=== PATIENT | female | born 1945 | race Caucasian/White ===

== ENCOUNTER 2024-12-04 10:15 | Outpatient (CLI) | payer MEDICARE, OTHER, SELFPAY | END 2024-12-04 10:16 | disposition home or self-care (01) | LOC: INJ CL 10:21 | PROVIDERS: PCP Physician Assistant; Visit Provider Family Medicine | DX: M54.16 Radiculopathy, lumbar region (principal) | CPT/HCPCS: 62323; J0702; Q9966 ==

== ENCOUNTER 2025-05-09 13:17 | Emergency (ER) | payer MEDICARE, OTHER, MEDICAID, SELFPAY ==
[2025-05-09] VITALS (10 sets, daily range): BP systolic 101–136; BP diastolic 46–75; PULSE 87–100; RESP 20; TEMP 36.5; O2SAT 91–95; BMI 22.9
--- NOTE | 2025-05-09 13:47 | CRLHL7_ITS ---
For Patients: As a result of the Century Cures Act, medical imaging exams and procedure reports are released immediately into your electronic medical record. You may view this report before your referring provider. If you have questions, please contact your health care provider. INDICATION: RECTAL PAIN, HEMORRHOIDS TECHNIQUE: CT abdomen and pelvis acquired with 61 cc Isovue 370 IV contrast. COMPARISON: None. FINDINGS: Lower chest: 2 millimeter left lower lobe indeterminate pulmonary nodule. ABDOMEN: Liver: Normal enhancement. No focal suspicious hepatic lesions. Gallbladder and biliary: Cholelithiasis in an otherwise normal gallbladder. Normal caliber bile ducts. Spleen: Normal size and enhancement. Pancreas: Normal enhancement without peripancreatic inflammatory changes or ductal dilatation. Adrenal glands: Normal adrenal glands. Kidneys and ureters: Normal enhancement. No radio-opaque calculi. No hydroureteronephrosis. Subcentimeter hypodensities are too small to characterize however statistically represent cysts. GI tract: The stomach is relatively decompressed. Normal caliber small and large bowel loops. Normal appendix. Colonic diverticulosis without diverticulitis. Vascular structures: Normal caliber aorta with atherosclerotic calcifications. Lymph nodes: No lymphadenopathy in the abdomen or pelvis by size criteria. Peritoneum: No free air, free fluid, or focal drainable fluid collection. PELVIS: Genitourinary system: Normal urinary bladder. Age-appropriate uterus. SKELETAL STRUCTURES AND SOFT TISSUES: No suspicious lytic or blastic lesions. IMPRESSION: 1. No discrete acute abdominal or pelvic process. No obstruction. No hydroureteronephrosis. 2. No imaging findings to explain the reported clinical symptoms. Please note that all CT scans at this facility use dose modulation, iterative reconstruction, and/or weight-based dosing when appropriate to reduce radiation dose to as low as reasonably achievable. Dictated by Luisito Michaels MD @ 05/09/2025 3:51:17 PM (Electronically Signed)
--- NOTE | 2025-05-09 13:49 | ED.GENADULT ---
HPI - General Adult General Date Seen: 05/09/25 Chief complaint: Unspecified Complaint, Adult Stated complaint: Hemorrhoids Time Seen by Provider: 05/09/25 13:37 History of Present Illness HPI narrative: Patient is an 80-year-old woman here with her daughter for evaluation of possible hemorrhoids. She says for the past week or 2 she has been having severe pain which has been keeping her from sleeping, it is difficult to sit. She notes that she has had hemorrhoids for a long time but they have really never bothered her. This pain is entirely new. She has had small infrequent bowel movements, usually loose. She notes that she does tend toward having to push to have a bowel movement, but it sounds like stools are generally loose rather than small or hard. It sounds as if pain is constant both lying down and sitting up. She has not seen any blood in her stools although she says she has not really looked because she would not want to see that anyway. She has not had any vomiting. She has not had fevers or other systemic complaints. Related Data Home Medications ?Medication ?Instructions ?Recorded ?Confirmed albuterol sulfate 90 mcg/actuation 1 - 2 puff inhalation Q4H PRN 05/09/25 05/09/25 aerosol inhaler (Ventolin HFA) dyspnea budesonide-formoterol HFA 160 1 puff inhalation BID 05/09/25 05/09/25 mcg-4.5 mcg/actuation aerosol inhaler celecoxib 100 mg capsule 100 mg PO BID PRN pain 05/09/25 05/09/25 fluticasone 113 mcg-salmeterol 14 1 inh inhalation BID 05/09/25 05/09/25 mcg/actuation breath activated powdr ipratropium 0.5 mg-albuterol 3 mg 3 ml inhalation 3XD 05/09/25 05/09/25 (2.5 mg base)/3 mL nebulization soln levothyroxine 88 mcg tablet 88 mcg PO QAM 05/09/25 05/09/25 metformin 500 mg tablet mg PO 05/09/25 potassium chloride 20 mEq 20 meq PO DAILY 05/09/25 05/09/25 tablet,extended release(part/cryst) simvastatin 20 mg tablet 20 mg PO QPM 05/09/25 05/09/25 Previous Rx's ?Medication ?Instructions ?Recorded icbllsfip-nzghizjkikaxux-myfw vera 1 applic NC BID 1 week #100 grams 05/09/25 2.8 %-0.55 % rectal gel Allergies Allergy/AdvReac Type Severity Reaction Status Date / Time house dust Allergy Mild Congested Verified 05/09/25 15:24 Review of Systems Status of ROS: Reports: 10 or more systems reviewed and unremarkable except as noted in History and below PFSH PFS Social History Non-prescribed substance use: denies use Exam Narrative: Exam Narrative: Vital signs reviewed In general, alert, nontoxic elderly woman. She is lying on her side, looks comfortable. Head: Normocephalic, atraumatic. Eyes: Sclera clear. Pupils equal and reactive. ENT: Mucous membranes moist. Neck: Supple without adenopathy. Heart: Regular rate and rhythm without murmur. Lungs: Clear. No increased work of breathing, crackles or wheezes. Abdomen: Soft, nontender to palpation. Rectal: She has 1 small nonthrombosed hemorrhoid at about 6:00 a.m.. She does have some tenderness here, I tried to do a digital rectal exam and she had severe pain with trying to do that exam. I do not feel any obvious palpable masses. Extremities: Well perfused, pulses intact. No significant edema. Neurologic: Alert, conversant. Speech fluent, face symmetric. Moves all extremities equally. Skin: Warm, dry well perfused. Affect: Normal. Const: Vital Signs, click to edit/add: Vital Signs - 24 hr 05/09/25 13:32 05/09/25 15:13 05/09/25 15:15 Temperature 97.7 F Pulse Rate 88 87 Pulse Rate [Right Pulse Oximeter] 100 Respiratory Rate 20 Blood Pressure Blood Pressure [Ri ght Upper Arm] 101/46 L Pulse Oximetry 93 95 95 Oxygen Delivery Me thod Room Air 05/09/25 15:38 05/09/25 15:46 05/09/25 16:00 Temperature Pulse Rate 98 87 Pulse Rate [Right Pulse Oximeter] Respiratory Rate Blood Pressure Blood Pressure [Ri ght Upper Arm] Pulse Oximetry 93 92 94 Oxygen Delivery Me thod 05/09/25 16:15 05/09/25 16:30 05/09/25 16:35 Temperature Pulse Rate 89 89 90 Pulse Rate [Right Pulse Oximeter] Respiratory Rate Blood Pressure 136/75 Blood Pressure [Ri ght Upper Arm] Pulse Oximetry 91 93 93 Oxygen Delivery Me thod 05/09/25 16:43 Temperature Pulse Rate Pulse Rate [Right Pulse Oximeter] Respiratory Rate Blood Pressure Blood Pressure [Ri t Upper Arm] 136/75 Pulse Oximetry Oxygen Delivery Me thod Course Course ED Course: Discussed with her and her daughter that it is a little hard for me to reconcile that small nonthrombosed hemorrhoid as causing severe pain. I do think we should do additional evaluation to look for other possible causes of rectal pain, I was not able to do a thorough enough rectal exam to determine whether she might have fecal impaction. Other considerations would be proctitis, abscess or other colitis. I recommended that we do a little blood work and a CT scan to evaluate further. She does have a pulse of 100, marginally low blood pressure of 101/46, she is afebrile and not reporting any systemic symptoms to suggest sepsis. Labs are notable for a normal white blood cell count of 5.3. She is mildly anemic with a hemoglobin of 10.7, baseline unknown. Her metabolic panel is entirely within normal limits. Her initial lactate was 3.3, CRP was less than 0.5. She had a L normal saline. Lactate improved to 2.3. She does tell me she has not been eating or drinking very much at all because she was worried about it worsening her rectal pain, so I suspect that her lactate is elevated secondary mostly to dehydration. CT scan by my review did not show any obvious inflammatory changes around the rectum or obvious abscess. Radiology reads her CT as negative for any acute findings or explanation for her pain. She had 0.25 mg of Dilaudid and feels considerably better, her daughter asked if she could have Dilaudid for home use but we discussed that based on her negative imaging, I think Dilaudid is probably not the best choice for her hemorrhoidal pain. I am prescribing her a lidocaine hydrocortisone ointment. Discussed that we would like to avoid having to push with bowel movements, so she feels that she is constipated would recommend MiraLax. I remain somewhat dubious that the visible hemorrhoid is causing severe pain, but in the absence of any other concerning findings on today's evaluation, I think it is reasonable to let her go home, I recommended primary care follow-up if she is not improving over the next few days to week. Return to the ER at any time if she has severe uncontrolled pain, new symptoms such as fevers, vomiting, chills etcetera. Vital Signs Vital signs: Initial Vital Signs Temperature 97.7 F 05/09/25 13:32 Temperature Source Temporal Artery Scan 05/09/25 13:32 Pulse Rate 100 05/09/25 13:32 Respiratory Rate 20 05/09/25 13:32 Blood Pressure 101/46 L 05/09/25 13:32 Blood Pressure Mean 64 L 05/09/25 13:32 Blood Pressure Position Sitting 05/09/25 13:32 Pulse Oximetry 93 05/09/25 13:32 Oxygen Delivery Method Room Air 05/09/25 13:32 Vital Signs Temperature 97.7 F 05/09/25 13:32 Pulse Rate 100 05/09/25 13:32 Respiratory Rate 20 05/09/25 13:32 Blood Pressure 101/46 L 05/09/25 13:32 Pulse Oximetry 93 05/09/25 13:32 Oxygen Delivery Method Room Air 05/09/25 13:32 Temperature 97.7 F 05/09/25 13:32 Pulse Rate 90 05/09/25 16:35 Respiratory Rate 05/09/25 13:32 Blood Pressure 136/75 05/09/25 16:43 Pulse Oximetry 93 05/09/25 16:35 Oxygen Delivery Method Room Air 05/09/25 13:32 Medications Administered Medications: Discontinued Medications Generic Name Dose Route Start Last Admin Trade Name Freq PRN Reason Stop Dose Admin Hydromorphone HCl 0.25 mg 05/09/25 13:47 05/09/25 14:40 Hydromorphone 0.5 Mg/0.5 Ml Inj IVP 05/09/25 13:48 0.25 mg ONCE ONE Administration Sodium Chloride 1,000 mls @ 1,000 mls/hr 05/09/25 14:00 05/09/25 15:48 0.9 % Sodium Chloride 1000 Ml IV 05/09/25 14:59 Infused .Q1H JANNETH Infusion Medical Decision Making Lab Data Lab results reviewed: Yes I reviewed the patient's lab results Labs: Lab Results 05/09/25 05/09/25 Range/Units 14:26 16:35 WBC 5.31 (4.50-11.00) K/uL RBC 4.18 (4.00-5.20) m/uL Hgb 10.7 L (12.0-16.0) gm/dL Hct 35.1 (33.0-51.0) % MCV 84 (80-100) fL MCH 26 (26-34) pg MCHC 31 L (32-36) gm/dL RDW Coeff of Diamond 16.5 H (11.5-15.5) % Plt Count 275 (140-440) K/uL Neut % (Auto) 64.6 (42.0-72.0) % Lymph % (Auto) 23.7 (20-44) % [place] % (Auto) 9.6 (0.0-11.0) % Eos % (Auto) 1.3 (0.0-7.0) % Baso % (Auto) 0.8 (0.0-3.0) % Neut # (Auto) 3.43 (1.7-7.0) K/uL Lymph # (Auto) 1.26 (0.90-2.90) K/uL [place] # (Auto) 0.50 (0.00-0.90) K/UL Eos # (Auto) 0.07 (0.00-0.50) K/uL Baso # (Auto) 0.04 (0.00-0.30) K/uL Abs Immat Gran (auto) 0.00 (0.00-0.30) K/uL Imm/Tot Granulo (auto) 0.0 % Sodium 135 (135-149) mmol/L Potassium 3.9 (3.6-5.1) mmol/L Chloride 104 (96-114) mmol/L Carbon Dioxide 24 (20-32) mmol/L Anion Gap 7 (7-15) mEq/L BUN 15 (7-30) mg/dL Creatinine 0.6 (0.5-1.5) mg/dL Estimated Creat Clear 32.73 Estimated GFR 90 ml/min Glucose 104 (60-115) mg/dL Lactate 3.3 H 2.3 H (0.5-1.9) mmol/L Calcium 8.9 (8.4-10.6) mg/dL C-Reactive Protein < 0.5 L (0.5-1.0) mg/dL Imaging Data CT scan - abdomen: Attestation: I have reviewed the pertinent imaging results. Radiologist's impression: Patient: ANASTACIA HASTINGS Facility: [facility] RIS Site . Site : [id number] Study: CT-Abdomen/Pelvis WITH 61 CC ISOVUE 370-05/09/2025 3:36:22 PM Ordering Physician: Hector Greco Final Report: INDICATION: RECTAL PAIN, HEMORRHOIDS TECHNIQUE: CT abdomen and pelvis acquired with 61 cc Isovue 370 IV contrast. COMPARISON: None. FINDINGS: Lower chest: 2 millimeter left lower lobe indeterminate pulmonary nodule. ABDOMEN: Liver: Normal enhancement. No focal suspicious hepatic lesions. Gallbladder and biliary: Cholelithiasis in an otherwise normal gallbladder. Normal caliber bile ducts. Spleen: Normal size and enhancement. Pancreas: Normal enhancement without peripancreatic inflammatory changes or ductal dilatation. Adrenal glands: Normal adrenal glands. Kidneys and ureters: Normal enhancement. No radio-opaque calculi. No hydroureteronephrosis. Subcentimeter hypodensities are too small to characterize however statistically represent cysts. GI tract: The stomach is relatively decompressed. Normal caliber small and large bowel loops. Normal appendix. Colonic diverticulosis without diverticulitis. Vascular structures: Normal caliber aorta with atherosclerotic calcifications. Lymph nodes: No lymphadenopathy in the abdomen or pelvis by size criteria. Peritoneum: No free air, free fluid, or focal drainable fluid collection. PELVIS: Genitourinary system: Normal urinary bladder. Age-appropriate uterus. SKELETAL STRUCTURES AND SOFT TISSUES: No suspicious lytic or blastic lesions. IMPRESSION: 1. No discrete acute abdominal or pelvic process. No obstruction. No hydroureteronephrosis. 2. No imaging findings to explain the reported clinical symptoms. Please note that all CT scans at this facility use dose modulation, iterative reconstruction, and/or weight-based dosing when appropriate to reduce radiation dose to as low as reasonably achievable. Dictated by Luisito Michaels MD @ 05/09/2025 3:51:17 PM Discharge Plan Discharge Clinical Impression: Anal or rectal pain Patient Disposition: Home, Self-Care Condition: Improved Instructions: Rectal Pain (ED) Additional Instructions: Use the prescribed topical ointment twice a day as directed for 1 week. You should not continue it beyond a week. If you are still having significant symptoms at that time you should be seen in follow-up by primary care. Sits that this several times a day. If at any point you feel significantly worse, have new symptoms such as abdominal pain, fevers, vomiting, chills etcetera, return to the emergency department. Prescriptions: New gmyfahynw-qezjydvilusfww-yhop 2.8-0.55 % gel 1 applic NC BID 7 Days Qty: 100 0RF No Action metformin 500 mg tablet PO ipratropium-albuterol 0.5 mg-3 mg(2.5 mg base)/3 mL solution for nebulization 3 ml INHALATION 3XD levothyroxine 88 mcg tablet 88 mcg PO QAM potassium chloride 20 mEq tablet,ER particles/crystals 20 meq PO DAILY simvastatin 20 mg tablet 20 mg PO QPM albuterol sulfate [Ventolin HFA] 90 mcg/actuation HFA aerosol inhaler 1 - 2 puff INHALATION Q4H PRN (Reason: dyspnea) celecoxib 100 mg capsule 100 mg PO BID PRN (Reason: pain) budesonide-formoterol 160-4.5 mcg/actuation HFA aerosol inhaler 1 puff INHALATION BID fluticasone propion-salmeterol 113-14 mcg/actuation aerosol powdr breath activated 1 inh INHALATION BID Follow Up/Referrals: Fannie Patrick PA-C [Primary Care Provider, Family Practice] Stand Alone Forms: Torrential Info Instructions
--- OUTSIDE RECORDS SUMMARY | 2025-05-09 14:36 | XMS_ITS | Clinical Summary ---
Author Organization [facility] Address [address] [place] [id number] Care Team Providers Care Reserve Operator Name Role Phone Fannie Patrick Primary Care Provider [phone] Allergies Active Allergy Reactions Criticality Noted Date Comments Dust Mites Runny Nose 11/03/2021 Pollen Extracts Runny Nose 11/03/2021 Medications ASPIRIN 325 MG TAB Once daily 0 04/10/20 07 Active cholecalciferol (VITAMIN D-3) 2,000 unit capsule Take 1 capsule by mouth once daily. 0 12/05/19 11 Active IBUPROFEN, BULK, MISC As directed. Active NebulizerIndicatio ns:COPD with chronic bronchitis (HC) Use as directed. 1 Device 02/11/20 21 Active blood-glucose meterIndications:T ype 2 diabetes mellitus without complication, without long-term current use of insulin (HC) Dispense meter, test strips, lancets covered by pt ins. E11.9 NIDDM type II - Test 1 time/day-Accuchec k meter 1 Each 10/07/19 23 Active Blood Pressure Monitor KitIndications:HTN (hypertension) Frequency of testin-3 times a week 1 Each 08/04/20 23 Active acetaminophen (TYLENOL) 325 mg tabletIndications: Uterovaginal prolapse Take 3 Tablets (975 mg) by mouth every 6 hours. Max acetaminophen dose: 4000mg in 24 hrs. 12/15/19 24 Active simvastatin (ZOCOR) 20 mg tabletIndications: Mixed hyperlipidemia Take 1 Tablet (20 mg) by mouth at bedtime. 90 Tablet 3 04/23/20 24 Active albuterol HFA (ProAir HFA) 90 mcg/actuation inhalerIndications :Pulmonary emphysema, unspecified emphysema type (HC) Inhale 1-2 Puffs by mouth every 4 hours if needed for Shortness of Breath 1st choice. 18 g 11 07/02/20 24 Active celecoxib (CELEBREX) 100 mg capsuleIndications :Primary osteoarthritis of both knees Take 1 Capsule (100 mg) by mouth 2 times daily if needed for Pain. 180 Capsule 3 07/02/20 24 Active artificial tears, peg 400 0.4%-propylene glycol 0.3%, (Systane, propylene glycoL,) ophthalmicIndicati ons:Dry eye syndrome of both eyes Place 1 Drop into both eyes 4 times daily if needed for Dry Eyes. 10 mL 2 07/12/20 24 Active ketotifen (Zaditor) 0.025 % (0.035 %) ophthalmic solutionIndication s:Allergic conjunctivitis of both eyes Place 1 Drop into both eyes two times daily. 5 mL 2 07/12/20 24 Active wheelchairIndicati ons:Weakness,Poor balance,Pulmonary emphysema, unspecified emphysema type (HC) Wheelchair: Standard with leg rests: (Swing away Length of need: 99 months 1 Each 08/17/20 24 Active blood sugar diagnostic (Accu-Chek Guide test strips) stripIndications:T ype 2 diabetes mellitus without complication, without long-term current use of insulin (HC) TEST ONCE DAILY 100 Each 3 10/13/19 25 Active Diabetic ShoeIndications:Ty pe 2 diabetes mellitus without complication, unspecified whether rat exterminator insulin use (HC) As directed. 1 Each 11/02/19 25 Active cetirizine (ZYRTEC) 10 mg tabletIndications: Non-seasonal allergic rhinitis due to pollen Take 1 Tablet (10 mg) by mouth once daily. 90 Tablet 3 11/13/19 25 Active albuterol-ipratrop ium (DUONEB) (2.5-0.5 mg) in 3 mL NEBULIZATION solutionIndication s:COPD with chronic bronchitis (HC) Inhale 3 mL via a nebulizer three times daily. 270 mL 11 11/13/19 25 Active metFORMIN (GLUCOPHAGE) 500 mg tabletIndications: Type 2 diabetes mellitus without complication, without long-term current use of insulin (HC) TAKE TWO TABLETS BY MOUTH EVERY MORNING AND TAKE ONE TABLET BY MOUTH EVERY EVENING 270 Tablet 1 11/13/19 25 Active potassium chloride (KLOR-CON M20) 20 mEq extended-release tablet (part/cryst)Indica tions:Hypokalemia Take 1 Tablet (20 mEq) by mouth once daily with a meal. 90 Tablet 3 11/13/19 25 Active Accu-Chek Softclix LancetsIndications :Type 2 diabetes mellitus without complication, without long-term current use of insulin (HC) TEST ONCE DAILY 100 Each 3 12/14/19 25 Active budesonide-formote roL 160-4.5 mcg/actuation (160-4.5 mcg each actuation) inhalerIndications :Other emphysema (HC) Inhale 1 Puff by mouth two times daily. 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 07/15/2023 Osteoporosis 02/12/2021 Colonoscopy refused 03/17/2016 Hypokalemia 02/27/2016 Iron deficiency anemia 02/27/2016 Acquired hypothyroidism 02/19/2016 Diabetes mellitus type 2, uncomplicated 12/03/19 16 Tubular adenoma of colon 10/25/2014 Tobacco use disorder 04/02/2014 Adenomatous colon polyp 03/20/2013 Overview (03/20/2013): Colonoscopy 02/2013 polyps repeat in 3 years Osteopenia 12/27/2012 Overview (12/27/2012): with elevated FRAX risk of 5%, hips COPD (chronic obstructive pulmonary disease) 06/2013 Mixed hyperlipidemia 04/11/2007 Resolved Problems Problem Noted Date Diagnosed Date Resolved Date Uncontrolled type 2 diabetes mellitus without complication, without long-term current use of insulin 01/12/2019 02/12/2021 Depression, major, single episode, moderate 01/12/2019 11/06/2021 Unspecified hypothyroidism 01/06/2007 0 02/19/2016 DIABETES 07/18/2002 12/03/2015 Overview (02/04/2012): Diagnosed in 1977. Encounters Date Type Department Care Team Description 05/09/2025 Nurse Triage [facility] [address] [place] [address] Fannie Patrick PA Rectal Problem 05/03/2025 2:16 PM CDT - 05/03/2025 11:59 PM CDT Hospital Encounter [address] [address] Omid Weaver MD Wegner, Angela V, GAS LEAK INSPECTOR 05/03/2025 Travel 04/25/2025 1:32 PM CDT - 04/25/2025 11:59 PM CDT Hospital Encounter [address] [address] Omid Weaver MD Wegner, Ailyn V, GAS LEAK INSPECTOR 04/25/2025 Travel 04/05/2025 2:30 PM CDT - 04/05/2025 11:59 PM CDT Hospital Encounter [address] [address] Omid Weaver MD Kaufenberg, Rachel, PT Primary osteoarthritis of left knee; Primary osteoarthritis of right knee; Lumbar spondylosis; Lumbar radiculopathy; Lumbar facet arthropathy 04/05/2025 Travel 03/27/2025 Refill [facility] [address] [place] [address] Fannie Patrick PA Refill Request (Levothyroxine) 03/15/2025 11:45 AM CDT Ancillary Procedure [facility] [address] [place] [address] 03/15/2025 10:40 AM CDT Office Visit [facility] [address] [place] [address] Omid Weaver MD Musculoskeletal Problem (Follow up back and bilateral knee pain) 03/15/2025 Travel 03/12/2025 Travel from Last 3 Months Immunizations Immunization Administration Dates Next Due AMB Influenza, IIV3 (Age >=3 years)(Flu Clinic Only) 07/22/2008 COVID-19 vaccine (Pfizer-Bio NTech 30mcg/0.3mL) 12YO+ BIVALENT PF, MDV 05/25/2022 COVID-19 vaccine (Pfizer-Bio NTech 30mcg/0.3mL) 12YO+ NO-SUCROSE PF, MDV 11/03/2021 COVID-19 vaccine (Pfizer-Bio NTech 30mcg/0.3mL) PF, MDV 12/02/2020,11/11/2020 Influenza A (H1N1), Inactiva albaro (Age >=3 Years) 07/30/2009 Influenza, High-dose Inactivated 019,05/23/2018,05/26/2017,05/06,05/13/2015 Influenza, High-dose Quadriv alent Inactivated 05/26/2023,06/16/2021,05/11/2020 Influenza, IIV3 (Age >=3 years) 06/10/20 13,06/03/2012,07/02/2011,06/30,05/26/2009,08/31/2002 Influenza, IIV4 05/14/2014 Influenza, Inactivated AIIV4 (Age 65+ Years) Preserv Free 05/25/2022 Influenza, Inactivated IIV3 (Age 65+ Years) Preserv Free 06/07/2024 Pneumococcal Poly,23-Valent (Pneumovax) 07/02/2011,05/31/2001 Pneumococcal conj 13-Valent (Prevnar 13) 06/23/2016 RSV, Recombinant ADJ Reconst ituted (Arexvy 120MCG/0.5mL) 07/15/2023 Td (Age >=7 Years) 09/14/1996 Tdap 07/29/2023,04/10/2007 Zoster (Shingrix-RZV, recombinant) 09/29/2023, Family History Medical History Relation Name Comments Diabetes Father Diabetes Mother Heart Disease Other 1 none Osteoporosis Other 2 none Other Other 3 niece, brother' s dtr, suicide, 04/07 Diabetes Son 2 sons. 1 son d ied unexpectedly 07/04 (remote pancreatic and renal transplants) Cancer-breast No Family History Relation Name Status Comments Father Mother Other 1 Other 2 Other 3 Son Social History Tobacco Use Types Packs/Day Years Used Date Smoking Tobacco: Every Day Cigarettes Passive Smoke Exposure: Current Smokeless Tobacco: Never Tobacco Cessation:Ready to Q uit: No; Counseling Given: Yes Comments:educational material offered Alcohol Use Standard Drinks/Week Comments No 0 (1 standard drink = 0.6 oz pur e alcohol) PHQ-2 Answer Date Recorded PHQ-2 TOTAL SCORE 0 11/12/2024 Social Connections Answer Date Recorded Do you often feel lonely or isolated from those around you? 0 11/12/2024 Financial Resource Strain Answer Date R ecorded Difficulty of Paying Living Expenses 3 11/12/2024 Difficulty of Paying Living Expenses Not on file 11/12/2024 Food Insecurity Answer Date Recorded Do you worry your food will run out before you are able to buy more? 1 11/12/2024 Transportation Needs Answer Date Record ed Does lack of transportation keep you from medica l appointments? 1 11/12/2024 Does lack of transportation keep you from work, meetings or getting things that you need? 1 11/12/2024 Housing Stability Answer Date Recorded What is your housing situation today? 1 11/12/2024 Utilities Answer Date Recorded Do you have trouble paying f or utilities (for example, heat, electricity, water, phone)? 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 Not on file Not on file Not on file Obstetrics History Para Term AB IAB SAB Ectopic Multiple Livin g Live Births 4 4 Date Outcome GA Total Labor Labor/2nd/3rd Weight Sex Type Anes PTL Allie A1 A5 Name Clin Para Para Para Para Last Filed Vital Signs Vital Sign Reading Time Taken Comments Blood Pressure 148/78 03/15/2025 11:00 AM CDT Pulse 95 03/15/2025 11:00 AM CDT Temperature 36.6 C (97.8 F) 03/15/2025 11:00 AM CDT Respiratory Rate 16 12/15/2023 1:13 PM CDT Oxygen Saturation 95% 03/15/2025 11: 00 AM CDT Inhaled Oxygen Concentration - - Weight 58.4 kg (128 lb 12.8 oz) 11:00 AM CDT shoes on Height 155.5 cm (5' 1.22) 11/12/2024 1:05 PM CD T Body Mass Index 24.16 11/12/2024 1:05 PM CDT Plan of Treatment Upcoming Encounters Date Type Department Care Team (Late st Contact Info) Description 05/16/2025 2:30 PM CDT Appointment [address] [place] [address] Mel Miller, PT [address] [place] [address] 05/23/2025 1:00 PM CDT Appointment [address] [address] Ailyn Capps V, GAS LEAK INSPECTOR [address] [place] [address] 05/31/2025 1:45 PM CDT Appointment [address] [place] [address] Mel Miller, PT [address] [place] [address] 06/06/2025 1:00 PM CDT Appointment [address] [address] Ailyn Capps V, GAS LEAK INSPECTOR [address] [place] [address] 06/13/2025 1:45 PM CDT Appointment [address] [address] Ailyn Capps V, GAS LEAK INSPECTOR [address] [place] [address] 06/20/2025 1:00 PM CDT Appointment [facility] [address] [facility] [place] [address] Mel Miller, PT [address] [facility] [place] [address] 06/27/2025 1:00 PM CDT Appointment [facility] [address] [facility] [place] [address] Mel Miller, PT [address] [facility] [place] [address] Health Maintenance Due Date Last Done Comments COVID-19 vaccine series ( season) 2025 06/07/2024, 05/26/2023, 05/25/2022, Additional history exists Influenza Vaccine (#1) 2025 , 05/25/2022, 05/24/2019, Additional history exists BMI (ht and wt on same day) for age 18+ 11/12/2025 11/12/2024, 07/02/2024, 12/13/2023, Additional history exists Depression screening for age 12+ 11/12/2025 11/12/2024, 11/12/2024, 07/15/2023, Additional history exists Medicare Wellness for age 65+ 11/13/2025 11/12/2024, 07/15/2023, 05/25/2022, Additional history exists Tetanus booster 07/29/2033 07/29/2023, 03/29, 09/14/1996 DEXA/DXA scan for age 65+ Completed 12/15/2012 Pneumococcal series for age 50+ Completed 06/23/2016, 07/02/2011, 05/31/2001 RSV vaccine for adults or Completed 07/15/2023 Zoster (shingles) series for age 50+ Completed 09/29/2023, 07/29/2023 Hepatitis B series for 19+ Aged Out N o longer eligible based on patient's age to complete this topic Procedures Procedure Name Priority Date/Time Associated Diagnosis Comments XR KNEE WB 2 VIEWS BILATERAL AND 1 VIEW BILATERAL Routine 03/15/2025 11:50 AM CDT Primary osteoarthritis of right knee Primary osteoarthritis of left knee XR DXA BONE DENSITY 2 SITES AXIAL Routine 12/15/2012 10:35 AM CDT Cessation of menses from Last 3 Months or Most Recently Relevant to Health Maintenance Results * XR KNEE WB 2 VIEWS BILATERAL AND 1 VIEW BILATERAL (03/15/2025 11:50 AM CDT) Anatomical Region Laterality Modality KNEES Computed Radiogr aphy 03/15/2025 1:47 PM CDT Impressions 03/15/2025 1:47 PM CDT 1. Mild medial and patellofemoral compartment osteoarthritis is noted without significant interval change. Moderate diffuse osteopenia is present. Dictated by David Singh MD @ 03/15/2025 1:47:42 PM Dictated by: David Singh MD @ 03/15/2025 13:47:47 (Electronically Signed) Narrative 03/15/2025 1:47 PM CDT For Patients: As a result of the Cures Act, medical imaging exams and procedure reports are released immediately into your electronic medical record. You may view this report before your referring provider. If you have questions, please contact your health care provider. INDICATION: Primary osteoarthritis of right knee TECHNIQUE: Knee radiograph 4 views bilateral COMPARISON: 07/15/2023 FINDINGS: Bone: No acute fractures or aggressive bone lesions are identified. Joint: Mild medial and patellofemoral compartment osteoarthritis is noted without significant interval change. No significant knee effusion is seen. Soft tissue: Unremarkable. No radiopaque foreign bodies are seen. Mild vascular calcifications are noted. Procedure Note David Singh MD - 03/15/2025 For Patients: As a result of the Cures Act, medical imagingexams and procedure reports are released immediately into your electronicmedical record. You may view this report before your referring provider.If you have questions, please contact your health care provider. INDICATION: Primary osteoarthritis of right knee TECHNIQUE: Knee radiograph 4 views bilateral COMPARISON: 07/15/2023 FINDINGS: Bone: No acute fractures or aggressive bone lesions are identified. Joint: Mild medial and patellofemoral compartment osteoarthritis is notedwithout significant interval change. No significant knee effusion is seen. Soft tissue: Unremarkable. No radiopaque foreign bodies are seen. Mildvascular calcifications are noted. IMPRESSION: 1. Mild medial and patellofemoral compartment osteoarthritis is notedwithout significant interval change. Moderate diffuse osteopenia ispresent. Dictated by David Singh MD @ 03/15/2025 1:47:42 PM Dictated by: David Singh MD @ 03/15/2025 13:47:47 (Electronically Signed) us Omid Weaver MD GENERAL IMAGING Final Resu lt * XR DXA BONE DENSITY 2 SITES (12/15/2012 10:35 AM CDT) Anatomical Region Laterality Modality Spine, HIPS, HIPL, HIPR Other Narrative 12/19/2012 12:16 PM CDT Please see scanned document for results of this study. Procedure Note Lorena Hay E - 12/19/2012 Please see scanned document for results of this study. us Chase Whatley MD DEXA Final Re sult from Last 3 Months or Most Recently Relevant to Health Maintenance Insurance [employer] MEDICARE PART B HB ONLY MEDICARE PART B HB ONLY MEDICA PRIME SOLUTIONS PB ONLY MEDICA PRIME SOLUTION HB MEDICARE PART A HB ONLY Advance Directives Documents on File Type Date Recorded Patient Workers Compensation Claims Assistant Expl anation Healthcare Directive 08/02/2023 023 * Full Code (Latest Code Status on File) Date Activated Date Inactivated Comments 12/15/2023 5:32 AM 12/15/2023 3:58 PM Question Answer Comments Code Status Discussion: Unable to Assess Preferences, Provider to review later Care Teams Reserve Operator Relationship Specialty Start Date End Date Fannie Patrick PA [address] [place] [address] PCP - General Physician Blocker And Cutter Contact Lens 07/15/23
[2025-05-09 14:46] LABS: Lactate Sepsis w/Reflex* 3.3 mmol/L (0.5-1.9)
[2025-05-09 14:47] LABS: Hematocrit* 35.1 % (33.0-51.0); Hemoglobin* 10.7 gm/dL (12.0-16.0); Immature Granulocytes Abs Auto 0.00 K/uL (0.00-0.30); Immature Granulocytes Pct Auto 0.0 %; Lymphocytes Absolute Auto 1.26 K/uL (0.90-2.90); Mean Corpuscular HGB Conc 31 gm/dL (32-36); Mean Corpuscular Hemoglobin 26 pg (26-34); Mean Corpuscular Volume 84 fL (80-100); RDW Coefficient of Variation % 16.5 % (11.5-15.5); Red Blood Count* 4.18 m/uL (4.00-5.20); White Blood Count* 5.31 K/uL (4.50-11.00)
[2025-05-09 14:51] LABS: Slide Review Reflex No
[2025-05-09 15:13] LABS: Chloride* 104 mmol/L (96-114); Potassium* 3.9 mmol/L (3.6-5.1); Sodium* 135 mmol/L (135-149)
[2025-05-09 15:17] LABS: Anion Gap 7 mEq/L (7-15); Blood Urea Nitrogen* 15 mg/dL (7-30); Calcium* 8.9 mg/dL (8.4-10.6); Carbon Dioxide* 24 mmol/L (20-32); Creatinine* 0.6 mg/dL (0.5-1.5); Est. Creatinine Clearance* 32.73; Estimated Glomerular Filt Rate 90 ml/min; Glucose* 104 mg/dL (60-115)
[2025-05-09 16:39] LABS: Lactate Sepsis 2 Hour 2.3 mmol/L (0.5-1.9)
== END 2025-05-09 17:22 | disposition home or self-care (01) ==
PROVIDERS: Emergency Provider Emergency Medicine; PCP Physician Assistant
DX: K62.89 Other specified diseases of anus and rectum (principal)
CPT/HCPCS: 36415; 74177; 80048; 83605; 85025; 86140; 96374; 99284; J1171; J7030; Q9967